=== PATIENT | male | born 1955 | race Caucasian/White ===

== ENCOUNTER → 2021-10-13 | Outpatient (CLI) | payer BC, OTHER ==
[~2021-10-13] MED LIST: ASA81BEC PO; ATORVASTATIN CA80 MG PO; CENTRUM SILVER1 EAC2 PO; COQ-10100 MG PO; EZETIMIBE10 MG PO; FISH OIL 1,0001 EAC9 PO; LISINOPRIL10 MG PO; MELOXICAM15 MG PO; TURMERIC500 M2 PO
[2021-10-13 12:20] LABS: URINE BILIRUBIN NEGATIVE (Negative); URINE BLOOD NEGATIVE (Negative); URINE CLARITY CLEAR; URINE COLOR YELLOW; URINE GLUCOSE-RANDOM* NEGATIVE (Negative); URINE KETONES NEGATIVE (Negative); URINE LEUKOCYTES-REFLEX NEGATIVE (Negative); URINE NITRITE-REFLEX NEGATIVE (Negative); URINE PROTEIN (DIPSTICK) NEGATIVE (Negative); URINE SPECIFIC GRAVITY 1.015 (1.005-1.035); URINE UROBILINOGEN 0.2 E.U./dl (0.2-1.0)
[2021-10-13 12:39] LABS: HEMATOCRIT 45.4 % (42.0-52.0); HEMOGLOBIN 15.2 gm/dL (14.0-18.0); MCH 31.1 pg (26.0-34.0); MCHC 33.4 g/dL (28.0-37.0); MCV 93.1 fL (80.0-100.0); RBC 4.88 mil/uL (4.50-6.00); RDW 13.8 % (10.5-14.5); WBC 7.4 thou/uL (4.0-11.0)
[2021-10-13 12:49] LABS: INR 0.93; PROTIME 10.2 Seconds (10.5-12.1)
[2021-10-13 12:54] LABS: ALBUMIN 3.9 g/dL (3.4-5.0); CALCIUM 8.9 mg/dL (8.5-10.1); CREATININE 0.9 mg/dL (0.7-1.3); POTASSIUM 4.3 mmol/L (3.5-5.1)
== END ==
LOC: PAC 10:35
PROVIDERS: ATTEND Orthopaedic Surgery
DX: Z01.812 Encounter for preprocedural laboratory examination (principal); I10 Essential (primary) hypertension; M17.11 Unilateral primary osteoarthritis, right knee; Z20.822 Contact with and (suspected) exposure to COVID-19

== ENCOUNTER 2021-10-16 06:09 | Observation (INO) | payer BC, OTHER ==
[~2021-10-16] VITALS: Ht 188 cm; Wt 93.9 kg
[2021-10-16 07:30] VITALS: BP 111/63
--- NOTE | 2021-10-16 12:05 | O ---
[facility] [address] [place] [address] OPERATIVE REPORT Name: ISAMAR PACHECO Room #: 150-5 [facility].#: [id number] Admission: 10/16/21 Attend Phys: Trevor Irby MD Discharge: Date of : 55 Report #: [id number] THIS REPORT FOR: cc: Rip Weaver MD, Bruce H. MD Clymer,Trevor Rivera MD ~ DATE OF SERVICE: 10/16/2021 PREOPERATIVE DIAGNOSIS: Degenerative arthritis, right knee with varus malalignment. POSTOPERATIVE DIAGNOSIS: Degenerative arthritis, right knee with varus malalignment. PROCEDURE: Right total knee arthroplasty. SURGEON: Trevor Irby MD INDICATIONS: This healthy, fit and active 66-year-old gentleman has rather severe degenerative arthritis involving the right knee with significant varus malalignment and knee instability. He has tried conservative measures without benefit and has decided now to go ahead with total knee arthroplasty. DESCRIPTION OF PROCEDURE: The patient was taken to the operating room where he was placed under general anesthesia. Prophylactic intravenous antibiotics were administered. The right knee and leg were meticulously prepped and draped and a thigh tourniquet inflated to 300 mmHg. An anterior longitudinal skin incision was made and carried through the medial retinaculum. The patella was reflected laterally. Marked degenerative change in all three compartments was noted. The Denson and Nephew knee system was utilized. Intramedullary guides were used on both the femur and the tibia. The femur was cut in 5 degrees of valgus and the tibia cut perpendicular to the long axis of the bone, which improved the varus malalignment nicely. The femur was best suited for a size 6 femoral component. The tibia was best suited for a size 5 tibial component. Bony spurring along the medial aspect was resected. Some ligament balancing was required as the preoperative varus alignment had caused moderate shortening on the medial side. Once limited medial release was performed, the alignment could be improved nicely and the knee seemed best suited for a 10 mm polyethylene insert. The patellar surface was resected and a 35 mm patellar button fit nicely. Appropriate anchor holes were created. The trial components were removed. The surfaces were thoroughly irrigated and dried. The intramedullary canal was blocked with a bone block on both the femoral and tibial sides. Methyl methacrylate cement was mixed and injected into the porous surface of the tibia. The Denson and Nephew right size 5 tibial baseplate was inserted and seated nicely. Excess cement was removed around its [facility] [address] [place] [address] OPERATIVE REPORT Name: ISAMAR PACHECO Room #: 150-5 [facility]#: [id number] Admission: 10/16/21 Attend Phys: Trevor Irby MD Discharge: Date of : 55 Report #: [id number] margin. The 10 mm cruciate retaining polyethylene insert was applied. It seated nicely and appeared to be secure. A right Legion cruciate retaining size 6 femoral component was impacted on the distal femur. It also seated nicely and appeared to be secure. A size 35 mm patellar button was cemented into place using appropriate anchor holes and secured with a patellar clamp until the cement had hardened. Once the cement was firm, alignment, range of motion and stability were assessed and felt to be satisfactory. The knee demonstrates full knee extension and flexion beyond 135. The patella tracks nicely. There is good improvement in the preoperative varus malalignment and mild flexion contracture. The ligament balancing appears to be satisfactory. The wound was further irrigated. Good hemostasis was confirmed. The fascia was closed with multiple #1 Vicryl sutures. A single Hemovac was left in the wound exiting through a separate stab incision. The subcutaneous tissues were closed with 0 Monocryl. The skin was closed with skin valerie. A sterile dressing was applied. The patient was awakened and returned to recovery room in good condition. <ELECTRONICALLY SIGNED> By: Trevor Irby MD 10/16/21 1205 [id number] Trevor Irby MD /nt
--- NOTE | 2021-10-16 18:30 | NUR ---
PT RECEIVED ALISA 1515 FROM REC RM ALERT AND IN NO ACUTE DISTRESS. PAIN INCREASED AND WAS MEDICATED W/ IV AND PO MEDS WHICH HELPED. SOME MILD NAUSEA AFTER IV MORPHINE AND ZOFRAN HELPED. HAVING SOME NUMBNESS BELOW THE RT KNEE SO PT WILL STAY ON BEDREST UNTIL NUMBNESS GONE. VOIDED IN BED W/O DIFFICULTY. DSNG DRY. HEMOVAC W/ 100 BLOODY DRAINAGE.
[2021-10-16 20:31] VITALS: BP 109/72
--- NOTE | 2021-10-17 04:00 | NUR ---
PT HAD A LOT OF PAIN AT THE START OF SHIFT. RECEIVED MORPINE IVP, ZOFRAN AND ALSO WAS REPOSITIONED. PT THEREAFTER FELT BETTER AND ACTUALLY RESTED NOT REQUIRING ANY MORE MEDS BESIDES OXY PO X 1.AFEBRILE. NO EMESIS. JAS, TEDS AND POLAR IN PLACE. CONTINUES ON IVF.
[2021-10-17 06:21] LABS: HEMATOCRIT 37.9 % (42.0-52.0); HEMOGLOBIN 12.9 gm/dL (14.0-18.0); MCH 31.7 pg (26.0-34.0); MCV 93.3 fL (80.0-100.0); RBC 4.06 mil/uL (4.50-6.00); WBC 11.9 thou/uL (4.0-11.0)
[2021-10-17 06:26] LABS: CALCIUM 8.6 mg/dL (8.5-10.1); POTASSIUM 4.2 mmol/L (3.5-5.1)
[2021-10-17 07:25] VITALS: BP 128/66
--- NOTE | 2021-10-17 09:00 | NUR ---
Chart review. 66 year old male, a & o x 4, and able to make his needs know. Dx Right knee, pod # 1. Intro to cm and dcp. Independent when feeling ok, needs at walker. lives with his , she is calling to set up outpt rehab. Nadeem getting ready to work with physical therapy. Provider plus will deliver fww before dc. Anticipated dc home on wednesday10/18/21.
--- NOTE | 2021-10-17 18:02 | NUR ---
Pt A & O x4. Pt is room air. Pt vS stable. Pt worked with PT/OT this shift. PT received medications as ordered and also received PRN medications. Pt is x 1 assist with ADLs and cares and walker. Pt has mohamud hose and polar pack in place. Pt hemovac removed this AM. Pt has asya dressing in place to R knee. Pt is able to make needs known
[2021-10-17 20:12] VITALS: BP 129/70
--- NOTE | 2021-10-18 02:12 | NUR ---
CONTINUING WITH PAIN MGT.PT DOING BETTER.STANDS BY SIDE OF BED TO USE URINAL. DENIES NAUSEA. GOOD CSM TO R FOOT.TEDS, SCDS AND POLAR IN PLACE. PROGRESSING TOWARDS CARE GOALS.
[2021-10-18 05:54] LABS: HEMATOCRIT 34.2 % (42.0-52.0); HEMOGLOBIN 11.6 gm/dL (14.0-18.0); MCH 31.2 pg (26.0-34.0); MCHC 33.7 g/dL (28.0-37.0); MCV 92.6 fL (80.0-100.0); RBC 3.7 mil/uL (4.50-6.00); RDW 13.6 % (10.5-14.5); WBC 11.5 thou/uL (4.0-11.0)
[2021-10-18 07:25] VITALS: BP 106/59
--- NOTE | 2021-10-18 13:34 | NUR ---
ASSUMED PT CARE THIS AM. PT IS ALERT & ORIENTED X4 AND ANXIOUS AT TIMES. PT HAS IV SITE ON LFA SALINE LOCKED. CALLED PHYSICAL THERAPY TO WORK WITH PT TODAY PER DR ROE. PT C/O OF PAIN AND GIVEN PAIN MEDICATION PER PT REQUEST. PHYSICAL AND OCCUPATIONAL THERAPY WAS WORKING WITH PT. PER PHYSICAL THERAPY DID NOT DO WELL AND STILL COMPLAINING OF PAIN. PT HAS BILATERAL THIGH HIGH ALEJANDRINA HOSES, JAS DRESSING, POLAR PACK AND SCD. WILL CONTINUE TO MONITOR PT. FOLLOW POC.
[2021-10-18 16:13] VITALS: BP 94/64
[2021-10-18 20:18] VITALS: BP 107/55
--- NOTE | 2021-10-19 04:19 | NUR ---
RECEIVED CARE OF THIS PATIENT AT 1900. PATIENT ALERT AND ORIENTED X4. C/O PAIN IN R KNEE, MED GIVEN. HAS JAS DRESSING WITH REDS AND POLAR ICE. SLEPT MOST OF NIGHT.
[2021-10-19 05:32] LABS: HEMATOCRIT 32.2 % (42.0-52.0); HEMOGLOBIN 10.9 gm/dL (14.0-18.0); MCH 31.6 pg (26.0-34.0); MCHC 33.8 g/dL (28.0-37.0); MCV 93.6 fL (80.0-100.0); RBC 3.44 mil/uL (4.50-6.00); RDW 13.8 % (10.5-14.5); WBC 9.6 thou/uL (4.0-11.0)
[2021-10-19 07:00] VITALS: BP 100/63
--- NOTE | 2021-10-19 15:59 | NUR ---
ASSYNED CARE OF PT AT 0830. REPORT RECIEVED. BALWINDER ASSESSMENT COMPLETE. JAS DRESSING IN PLACE. POLAR PACK IN PLACE. ALL MEDS GIVEN .. PAIN MEDS GIVEN INDICATED. PT IN GOOD SPIRITS. ALL NEEDS METS. HOURLY ROUNDING CONTINUING. CALL LIGHT IN REACH
[2021-10-19 19:11] VITALS: BP 136/77
--- NOTE | 2021-10-20 06:38 | NUR ---
PATIENT AOX4 MAKES NEEDS KNOWN. PAIN CONTROLLED THIS SHIFT. RIGHT LEG SHAYY WRAP IS C/D/I. PATIENT HAS ALEJANDRINA HOSE AND POLAR CARE ALL NIGHT. PATIENT IN BED ASLEEP AT THIS TIME BREAHTING REGULAR AND UNLABOURED.
[2021-10-20 07:43] VITALS: BP 103/59
[2021-10-20 12:47] VITALS: BP 103/59
--- NOTE | 2021-10-20 13:05 | NUR ---
PT ASSESSED AT START OF SHIFT. STANDING AT BEDSIDE STRETCHING LEGS. WORKED W/ THERAPIST THIS AM AND APPROVED FOR DISCHARGE TODAY. TEACHING DONE W/ PT REGARDING IMPORTANCE OF USING WALKER AT ALL TIMES. PAIN MEDS GIVEN W/ FAIR RELIEF. DISCHARGING AT THIS TIME PER SON W/ ALL BELONGINGS. F/U W/ DR. ROE.
--- NOTE | 2021-10-21 08:21 | D ---
[facility] [address] [place] [address] DISCHARGE SUMMARY Name: ISAMAR PACHECO Room #: 442-P [facility] Mary Montes#: [id number] Admission: 10/16/21 Attend Phys: Trevor Irby MD Discharge: 10/20/21 Date of : 55 Report #: [id number] THIS REPORT FOR: cc: Rip Weaver MD, Bruce H. MD Clymer,Trevor Rivera MD ~ DATE OF SERVICE: 10/20/2021 FINAL DIAGNOSIS: End-stage degenerative arthritis, right knee. POST-OPERATIVE DIAGNOSIS: End-stage degenerative arthritis, right knee. PROCEDURE: Right total knee arthroplasty. HISTORY: This 66-year-old slender, fit and active gentleman has progressive right knee pain. Clinical and radiographic findings confirm moderate degenerative arthritis. He had tried conservative measures without benefit. He was elected to go ahead with right total knee arthroplasty. HOSPITAL COURSE: The patient was admitted and taken to the operating room on 10/16. He underwent right total knee arthroplasty, which he tolerated generally well. Postoperatively; however, he had marked pain and had great difficulty with pain control and with physical therapy. He required aggressive narcotic analgesics and was very limited in his activity and therapy for the first couple of days. He was slowly able to get up out of bed to a chair and then begin very limited ambulation with physical therapy assistance. He was gradually able to discontinue IV analgesics and move to aggressive oral analgesics. He was gradually able to advance with physical therapy and eventually was able to ambulate with a walker and with weightbearing with manageable discomfort. He had no other significant medical problems. He was able to resume a regular diet. He was able to resume his routine medications and was started on Xarelto for anticoagulation prophylaxis. He seems today safe and ready for discharge. He is ambulating with his walker and has done a few steps and seems safe for discharge home with family assistance. He is back on a regular diet. His discharge medications include Ezetimibe 10 mg daily, lisinopril 10 mg daily, atorvastatin 80 mg daily, fish oil 1000 mg daily, CoQ10 100 mg daily, Xarelto 10 mg daily, oxycodone 10 mg q. 6 hours p.r.n. for severe pain, hydrocodone 10 mg q. 6 hours p.r.n. for obyu-yb-tgithkxi pain, Flexeril 10 mg 3 times daily as needed for muscle spasm. He will continue a regular diet at home. He will continue with gradually advancing exercise as instructed here. We will plan for outpatient physical therapy in 1-2 weeks if symptoms require. He is instructed [address] [address] DISCHARGE SUMMARY Name: ISAMAR PACHECO Room #: 442-P [facility] Mary Monets#: [id number] Admission: 10/16/21 Attend Phys: Trevor Irby MD Discharge: 10/20/21 Date of : 55 Report #: [id number] to call or return in 1 week for routine followup and in two weeks for suture removal. <ELECTRONICALLY SIGNED> By: Trevor Irby MD 10/21/21 0821 1009 1230 Trevor Irby MD /nt
== END 2021-10-20 13:19 | disposition home or self-care (01) ==
LOC: OR → 4S 06:09 → OR 06:09 → TBA 07:58 → OR 09:21 → 4S 14:57 → OR 14:58 → 4S 10-20 13:19
PROVIDERS: ADMIT Orthopaedic Surgery; ATTEND Orthopaedic Surgery
DX: M17.11 Unilateral primary osteoarthritis, right knee (principal); M21.161 Varus deformity, not elsewhere classified, right knee; I10 Essential (primary) hypertension; E78.00 Pure hypercholesterolemia, unspecified; Z98.890 Other specified postprocedural states; Z79.899 Other long term (current) drug therapy; Z88.8 Allergy status to other drugs, medicaments and biological substances
CPT/HCPCS: 10102; 50010; 50101; 50415; 50954; 51130; 51225; 51320; 51412; 52001; 52282; 56525; 57095; 57103; 57104; 57180; 58449; 62110; 62900; 64042; 70005